=== PATIENT | male | born 1960 | race Caucasian/White ===

== ENCOUNTER 2016-10-16 14:43 | Emergency (ER) | payer BC ==
[2016-10-16 14:55] VITALS: BP 133/81
--- NOTE | 2016-10-16 15:26 | EDM.PDOC ---
ED HPI GENERAL MEDICAL PROBLEM - General Chief Complaint: Lower Extremity Injury/Pain Stated Complaint: RIGHT LEG SWELLING Time Seen by Provider: 10/16/16 15:04 Source of Information: Reports: Patient History Limitations: Reports: No Limitations - History of Present Illness INITIAL COMMENTS - FREE TEXT/NARRATIVE: Patient is a 48-year-old male who presents to the ED with concerns of having a blood clot to his right leg. Patient recently underwent Port-A-Cath placement and was instructed if at any time develops swelling and/or pain to his lower extremities to be evaluated in the ED immediately. Patient has a history of lymphoma and underwent bone marrow biopsy of his left hip this past week. Patient did have one episode of intermittent pain to the right leg that lasted only for a short period of time and has not reoccurred. believes patient has swelling to his thigh, knee, and lower leg. There is no increased warmth, redness, open wounds present. No sensory/motor deficits to his lower extremity. Denies any chest pain, shows breath, nausea/vomiting, dizziness, presyncope/ simple episode, or any additional complaints. Patient has been diagnosed with lymphoma unclear of his non-Hodgkin's or Hodgkin's lymphoma. He will find out this information tomorrow. In addition PET scan was obtained with no results as of today. He sees his oncologist tomorrow. lower abdomen Pain Score (Numeric/FACES): 4 - Related Data Allergies Allergy/AdvReac Type Severity Reaction Status Date / Time No Known Allergies Allergy Verified 10/16/16 14:55 Home Meds: Home Meds Ascorbic Acid/Ascorbate Sodium [Vitamin C 500 mg Wafer] 1,000 mg PO DAILY [History] Diphenhyd/Lidocaine/Nystatin [Magic Mouthwash] 5 ml PO Q4H PRN 10/16/16 [History ] Hydrocodone/Acetaminophen [[place] 5-325] 1 tab PO Q6H PRN 10/16/16 [History] Lisinopril [Lisinopril] 1 tab PO DAILY 10/16/16 [History] Melatonin 5 mg PO BEDTIME PRN 10/16/16 [History] Ondansetron [Zofran ODT] 8 mg PO Q8H 10/16/16 [History] Simvastatin [Zocor] 20 mg PO BEDTIME 10/16/16 [History] Valerian Root 100 mg PO BEDTIME PRN 10/16/16 [History] Vitamin B Comp W-C/FA/Zinc [Tata B Strong with C & Zinc Tb] 1 each PO DAILY [History] Past Medical History HEENT History: Reports: Impaired Vision Cardiovascular History: Reports: Hypertension Respiratory History: Reports: None Gastrointestinal History: Reports: Other (See Below) Other Gastrointestinal History: mouth pain Hematologic History: Reports: B12 Deficiency Immunologic History: Reports: Other (See Below) Other Immunologic History: diagnosed with lymphoma 3 weeks ago Oncologic (Cancer) History: Reports: Lymphoma Social & Family History - Family History Family Medical History: Noncontributory - Tobacco Use Smoking Status *Q: Current Some Day Smoker Years of Tobacco use: 15 Packs/Tins Daily: 0.1 - Caffeine Use Caffeine Use: Reports: Coffee - Recreational Drug Use Recreational Drug Use: No Review of Systems - Review of Systems Review Of Systems: See Below Constitutional: Denies: Chills, Diaphoresis, Fever Respiratory: Reports: No Symptoms Cardiovascular: Reports: No Symptoms GI/Abdominal: Reports: Abdominal Pain (Chronic abdominal pain secondary to lymphoma with no new changes) Musculoskeletal: Reports: Leg Pain (History of intermittent right sided leg pain. No pain today. States family was concerned about increased swelling to the upper thigh, knee, and lower leg. They were concerned he may have a blood clot.) Skin: Denies: Bruising, Erythema, Wound Neurological: Reports: No Symptoms ED EXAM, GENERAL - Physical Exam Exam: See Below Exam Limited By: No Limitations General Appearance: Alert, WD/WN, No Apparent Distress Ears: Hearing Grossly Normal Nose: Normal Inspection Throat/Mouth: Normal Voice, No Airway Compromise Neck: Normal Inspection, Supple Respiratory/Chest: No Respiratory Distress, No Accessory Muscle Use Cardiovascular: Normal Peripheral Pulses, Regular Rate, Rhythm Peripheral Pulses: 2+: Popliteal (R), Posterior Tibial (R), Dorsalis Pedis (R) GI/Abdominal: Normal Bowel Sounds, Soft, Non-Tender, No Organomegaly, No Distention Extremities: Normal Inspection, Normal Range of Motion, Non-Tender, No Pedal Edema, Normal Capillary Refill, Other (No palpable cord on palpation. No increased warmness, no redness, no swelling, no pain present.) Neurological: Alert, Oriented, CN II-XII Intact, Normal Cognition, No Motor/ Sensory Deficits Psychiatric: Normal Affect, Normal Mood Skin Exam: Warm, Dry, Intact, Normal Color Lymphatic: No Adenopathy (No obvious lymphadenopathy noted to the right leg.) Course - Vital Signs Last Recorded V/S: Last Vital Signs Temp 98.4 F 10/16/16 14:49 Pulse 74 10/16/16 14:49 Resp 18 10/16/16 14:49 BP 133/81 10/16/16 14:49 Pulse Ox 100 10/16/16 14:49 - Re-Assessments/Exams Free Text/Narrative Re-Assessment/Exam: Examined patient with Dr. Toro. No findings concerning for DVT. No pain, no swelling, no increased warmth, no decrease range of motion, no edema, no sensory /motor deficits. Will discharge patient home with instructions as documented. Departure - Departure Time of Disposition: 15:28 Disposition: Home, Self-Care 01 Condition: Good Clinical Impression: Adult general medical examination Lymphoma Qualifiers: Lymphoma type: unspecified type Lymphoma site: intra-abdominal nodes Qualified Code(s): C85.93 - Non-Hodgkin lymphoma, unspecified, intra-abdominal lymph nodes - Discharge Information Referrals: Alberta Ridley MD [Primary Care Provider] - Forms: ED Department Discharge Additional Instructions: Findings on examination did not elicit any findings concerning for DVT, infection, gout, or pseudogout. There is no obvious swelling discrepancies in comparison to the left leg. No palpable cord. No increased redness, increased warmth, or pain present. Continue to follow instructions by [facility] for any changes. Keep appointment with oncology as scheduled. Return to the ED for any new or worsening symptoms.
== END 2016-10-16 15:40 | disposition home or self-care (01) ==
LOC: JD.ED 14:43
DX: C85.93 Non-Hodgkin lymphoma, unspecified, intra-abdominal lymph nodes (principal); I10 Essential (primary) hypertension; F17.210 Nicotine dependence, cigarettes, uncomplicated; Z79.899 Other long term (current) drug therapy
CPT/HCPCS: 99282; 99283

== ENCOUNTER 2016-10-18 14:27 | Emergency (ER) | payer BC ==
[2016-10-18 15:16] VITALS: BP 168/107
[2016-10-18] MEDS ORDERED: Sodium Chloride 0.9% 10 ML Syringe FLUSH PRN (15:26)
[2016-10-18] MEDS ORDERED: Ondansetron 4 MG/2 ML SDV IVPUSH ONE (15:26)
[2016-10-18] MEDS ORDERED: HYDROmorphone 1 MG/ML Syringe IVPUSH ONE ×2 (15:29→18:00)
[2016-10-18] MEDS ORDERED: Sodium Chloride 0.9% 1,000 ML IV SCH (15:30)
[2016-10-18] MEDS ORDERED: Sodium Chloride 0.9% 10 ML Syringe FLUSH ONE (15:46)
[2016-10-18] MEDS ORDERED: Iopamidol 612 MG/ML 150 ML Bottle IVPUSH ONE (15:46)
[2016-10-18] MEDS ORDERED: Diatrizoate Meglumine/Diatrizoate Sodium 37% 120 ML Bottle PO ONE (15:46)
--- NOTE | 2016-10-18 16:31 | EDM.PDOC ---
ED HPI GENERAL MEDICAL PROBLEM - General Chief Complaint: Abdominal Pain Stated Complaint: POSSIBLE BOWEL OBSTRUCTION Time Seen by Provider: 10/18/16 15:16 Source of Information: Reports: Patient History Limitations: Reports: No Limitations - History of Present Illness INITIAL COMMENTS - FREE TEXT/NARRATIVE: The patient presents with left sided abdominal pain that started today. He has recently been diagnosed with nonhodgkin's lymphoma. He had a port put in last week. He is scheduled for chemo tomorrow. He has some nausea but no vomiting. He had a small bowel movement today. He has not been able to void very well lately. He has no dysuria and no diarrhea. He has never had abdominal surgery. He has some lymph nodes in the left abdomen and his neck and chest. He is concerned he may have a bowel obstruction. Onset: Gradual Duration: Day(s): (Today) Location: Reports: Abdomen Quality: Reports: Sharp Severity: Severe Improves with: Reports: None Worsens with: Reports: None Associated Symptoms: Reports: Nausea/Vomiting. Denies: Confusion, Chest Pain, Fever/Chills, Shortness of Breath Abdomen Pain Score (Numeric/FACES): 10 - Related Data Allergies Allergy/AdvReac Type Severity Reaction Status Date / Time No Known Allergies Allergy Verified 10/18/16 15:16 Home Meds: Home Meds Ascorbic Acid/Ascorbate Sodium [Vitamin C 500 mg Wafer] 1,000 mg PO DAILY [History] Diphenhyd/Lidocaine/Nystatin [Magic Mouthwash] 5 ml PO Q4H PRN 10/16/16 [History ] Hydrocodone/Acetaminophen [[place] 5-325] 1 tab PO Q6H PRN 10/16/16 [History] Lisinopril [Lisinopril] 1 tab PO DAILY 10/16/16 [History] Melatonin 5 mg PO BEDTIME PRN 10/16/16 [History] Ondansetron [Zofran ODT] 8 mg PO Q8H 10/16/16 [History] Simvastatin [Zocor] 20 mg PO BEDTIME 10/16/16 [History] Valerian Root 100 mg PO BEDTIME PRN 10/16/16 [History] Vitamin B Comp W-C/FA/Zinc [Tata B Strong with C & Zinc Tb] 1 each PO DAILY [History] Allopurinol [Zyloprim] 300 mg PO BID 10/18/16 [History] Past Medical History HEENT History: Reports: Impaired Vision Cardiovascular History: Reports: Hypertension Respiratory History: Reports: None Gastrointestinal History: Reports: Other (See Below) Other Gastrointestinal History: mouth pain Hematologic History: Reports: B12 Deficiency Immunologic History: Reports: Other (See Below) Other Immunologic History: diagnosed with lymphoma 3 weeks ago Oncologic (Cancer) History: Reports: Lymphoma Social & Family History - Family History Family Medical History: Noncontributory - Tobacco Use Smoking Status *Q: Unknown Ever Smoked Years of Tobacco use: 15 Packs/Tins Daily: 0.1 - Caffeine Use Caffeine Use: Reports: Coffee - Recreational Drug Use Recreational Drug Use: No ED ROS GENERAL - Review of Systems Review Of Systems: See Below Constitutional: Reports: No Symptoms HEENT: Reports: No Symptoms Respiratory: Reports: No Symptoms Cardiovascular: Reports: No Symptoms Endocrine: Reports: No Symptoms GI/Abdominal: Reports: Abdominal Pain, Nausea. Denies: Diarrhea, Vomiting : Reports: No Symptoms Musculoskeletal: Reports: No Symptoms Skin: Reports: No Symptoms ED EXAM, GI/ABD - Physical Exam Exam: See Below Exam Limited By: No Limitations General Appearance: Moderate Distress Ears: Normal External Exam Nose: Normal Inspection Head: Atraumatic, Normocephalic Neck: Normal Inspection Respiratory/Chest: No Respiratory Distress, Lungs Clear, Normal Breath Sounds Cardiovascular: Regular Rate, Rhythm, No Edema, No Murmur GI/Abdominal Exam: Soft, Non-Tender, No Organomegaly, No Mass Back Exam: Normal Inspection Extremities: Normal Inspection Neurological: Alert, Oriented, No Motor/Sensory Deficits Course - Vital Signs Last Recorded V/S: Last Vital Signs Temp 98.1 F 10/18/16 15:13 Pulse 67 10/18/16 15:13 Resp 18 10/18/16 15:13 BP 168/107 H 10/18/16 15:13 Pulse Ox 100 10/18/16 15:13 - Orders/Labs/Meds Orders: Active Orders 24 hr Category Date Time Status Peripheral IV Care [RC] . DIRECTED Care 10/18/16 15:27 Active Sodium Chloride 0.9% [Normal Saline] 1,000 ml Med 10/18/16 15:30 Active IV ASDIRECTED Sodium Chloride 0.9% [Saline Flush] Med 10/18/16 15:26 Active 10 ml FLUSH ASDIRECTED PRN ED Antiemetic Medication Reflex [OM.PC] Stat Oth 10/18/16 15:26 Ordered Peripheral IV Insertion Adult [OM.PC] Stat Ot 10/18/16 15:26 Ordered Medication Orders Sodium Chloride (Normal Saline) 1,000 mls @ 125 mls/hr IV ASDIRECTED DEA Last Admin: 10/18/16 15:37 Dose: 125 mls/hr Sodium Chloride (Saline Flush) 10 ml FLUSH ASDIRECTED PRN PRN Reason: Keep Vein Open Last Admin: 10/18/16 15:40 Dose: 10 ml Labs: Laboratory Tests 10/18/16 10/18/16 10/18/16 Range/Units 15:26 15:30 17:30 WBC 7.34 (4.23-9.07) K/mm3 RBC 3.70 L (4.63-6.08) M/mm3 Hgb 10.8 L (13.7-17.5) gm/L Hct 31.9 L (40.1-51.0) % MCV 86.2 (79.0-92.2) fl MCH 29.2 (25.7-32.2) pg MCHC 33.9 (32.2-35.5) g/dl RDW Std Deviation 41.8 (35.1-43.9) fL Plt Count 261 (163-337) K/mm3 MPV 10.2 (9.4-12.3) fl Neut % (Auto) 83.7 H (34.0-67.9) % Lymph % (Auto) 5.6 L (21.8-53.1) % [place] % (Auto) 9.7 (5.3-12.2) % Eos % (Auto) 0.8 (0.8-7.0) Baso % (Auto) 0.1 (0.1-1.2) % Neut # (Auto) 6.14 H (1.78-5.38) K/mm3 Lymph # (Auto) 0.41 L (1.32-3.57) K/mm3 [place] # (Auto) 0.71 (0.30-0.82) K/mm3 Eos # (Auto) 0.06 (0.04-0.54) K/mm3 Baso # (Auto) 0.01 (0.01-0.08) K/mm3 Manual Slide Review Abnormal smear Sodium 126 L (136-145) mEq/L Potassium 4.0 (3.5-5.1) mEq/L Chloride 91 L (98-107) mEq/L Carbon Dioxide 26 (21-32) mEq/L Anion Gap 13.0 (5-15) BUN 8 (7-18) mg/dL Creatinine 0.7 (0.7-1.3) mg/dL Est Cr Clr Drug Dosing TNP Estimated GFR (MDRD) > 60 (>60) mL/min BUN/Creatinine Ratio 11.4 L (14-18) Glucose 116 H (74-106) mg/dL Calcium 9.0 (8.5-10.1) mg/dL Total Bilirubin 0.3 (0.2-1.0) mg/dL AST 32 (15-37) U/L ALT 42 (16-63) U/L Alkaline Phosphatase 123 H (46-116) U/L Total Protein 7.4 (6.4-8.2) g/dl Albumin 3.1 L (3.4-5.0) g/dl Globulin 4.3 gm/dL Albumin/Globulin Ratio 0.7 L (1-2) Lipase 73 (73-393) U/L Urine Color Light yellow (Yellow) Urine Appearance Clear (Clear) Urine pH 6.5 (5.0-8.0) Ur Specific [place] 1.010 (1.005-1.030) Urine Protein Negative (Negative) Urine Glucose (UA) Negative (Negative) Urine Ketones Negative (Negative) Urine Occult Blood Negative (Negative) Urine Nitrite Negative (Negative) Urine Bilirubin Negative (Negative) Urine Urobilinogen 0.2 (0.2-1.0) Ur Leukocyte Esterase Negative (Negative) Urine RBC Not seen (0-5) /hpf Urine WBC Not seen (0-5) /hpf Ur Epithelial Cells 0-5 (0-5) /hpf Urine Bacteria Not seen (FEW) /hpf Urine Mucus Not seen (FEW) /hpf Meds: Medications Generic Name Dose Route Start Last Admin Trade Name Freq PRN Reason Stop Dose Admin Sodium Chloride 1,000 mls @ 125 mls/hr 10/18/16 15:30 10/18/16 15:37 Normal Saline IV 125 mls/hr ASDIRECTED DEA Administration Sodium Chloride 10 ml 10/18/16 15:26 10/18/16 15:40 Saline Flush FLUSH 10 ml ASDIRECTED PRN Administration Keep Vein Open Discontinued Medications Generic Name Dose Route Start Last Admin Trade Name Stuart PRN Reason Stop Dose Admin Diatrizoate Meglum/Diatrizoate Sod 90 ml 10/18/16 15:46 10/18/16 16:46 Gastrografin 37% PO 10/18/16 15:47 90 ml ONETIME ONE Administration Hydromorphone HCl 1 mg 10/18/16 15:29 10/18/16 15:39 Dilaudid IVPUSH 10/18/16 15:30 1 mg ONETIME ONE Administration Iopamidol 125 ml 10/18/16 15:46 10/18/16 16:47 Isovue-300 (61%) IVPUSH 10/18/16 15:47 125 ml ONETIME ONE Administration Ondansetron HCl 4 mg 10/18/16 15:26 10/18/16 15:37 Zofran IVPUSH 10/18/16 15:27 4 mg ONETIME ONE Administration Sodium Chloride 10 ml 10/18/16 15:46 10/18/16 16:47 Saline Flush FLUSH 10/18/16 15:47 10 ml ONETIME ONE Administration - Re-Assessments/Exams Free Text/Narrative Re-Assessment/Exam: 10/18/16 16:31 I ordered an IV NS 1L bolus, zofran 4mg IV, dilaudid 1mg IV, labs, UA and CT of his abdomen and pelvis. 10/18/16 17:28 His WBC is normal. His Na was low at 126. His glucose was a little elevated at 116. His alk phos was elevated at 123. His lipase was low. His CT shows inflammatory change within the right and left sides of the lower abdomen. Etiology for this is not appreciated. Findings raise the possibility of inflammatory reaction from treatment of the patient's lymphoma. Appendix not visualized. Please correlate that patient has had previous appendectomy. Adenopathy seen within the retroperitoneum as well as right iliac chain and right inguinal region. No prior studies available for comparison to determine stability of this adenopathy. No additional abnormality if appreciated. I called Dr Alberta Ridley his oncologist and she wanted him to have some dexamethasone 10mg IV and she wants to see him tomorrow at 8am. She feels this is related to the lymphoma. She wants to get him started on the chemo tomorrow. The patient is in agreement with the plan. I will discharge him home. Departure - Departure Time of Disposition: 18:10 Disposition: Home, Self-Care 01 Condition: Good Clinical Impression: Lymphoma Qualifiers: Lymphoma type: unspecified type Lymphoma site: intra-abdominal nodes Qualified Code(s): C85.93 - Non-Hodgkin lymphoma, unspecified, intra-abdominal lymph nodes Abdominal pain Qualifiers: Abdominal location: left lower quadrant Qualified Code(s): R10.32 - Left lower quadrant pain - Discharge Information Referrals: Alberta Ridley MD [Primary Care Provider] - (Tomorrow at 8am) Forms: ED Department Discharge Additional Instructions: Take your medication as needed for the nausea and pain. See Dr Ridley tomorrow at 8am. Please return tonight if you have any more problems. - My Orders Last 24 Hours: My Active Orders 10/18/16 15:26 Sodium Chloride 0.9% [Saline Flush] 10 ml FLUSH ASDIRECTED PRN ED Antiemetic Medication Reflex [OM.PC] Stat Peripheral IV Insertion Adult [OM.PC] Stat 10/18/16 15:27 Peripheral IV Care [RC] . DIRECTED 10/18/16 15:30 Sodium Chloride 0.9% [Normal Saline] 1,000 ml IV ASDIRECTED - Assessment/Plan Last 24 Hours: My Active Orders 10/18/16 15:26 Sodium Chloride 0.9% [Saline Flush] 10 ml FLUSH ASDIRECTED PRN ED Antiemetic Medication Reflex [OM.PC] Stat Peripheral IV Insertion Adult [OM.PC] Stat 10/18/16 15:27 Peripheral IV Care [RC] . DIRECTED 10/18/16 15:30 Sodium Chloride 0.9% [Normal Saline] 1,000 ml IV ASDIRECTED
--- NOTE | 2016-10-18 17:13 | CT ---
CT abdomen and pelvis Technique: Multiple axial sections were obtained from above the dome of the diaphragm inferiorly through the pubic symphysis. Intravenous and oral contrast was utilized. Delayed images were also obtained through the abdomen and pelvis. Comparison: No previous CT exam is available for comparison. Findings: Small portion of the visualized lung bases shows nothing acute. Liver shows no focal parenchymal abnormality. Spleen appears within normal limits. Adrenal glands show no nodule. Kidneys show contrast enhancement. Cyst noted within the lower left kidney measuring approximately 2.2 cm in size. Gallbladder shows no calcified gallstones. Pancreas is within normal limits. Aorta shows no aneurysmal dilatation. Bulky retroperitoneal adenopathy is seen with large lymph nodes seen within the right iliac chain and large lymph nodes also seen within the right inguinal region. This is compatible with the clinical history of lymphoma. There is slight inflammatory change seen off the inferior cecum. Appendix is not visualized. Etiology for this inflammatory change is not appreciated. Mild inflammatory change is also seen on the left side of the lower abdomen. No diverticuli are seen to indicate diverticulitis. Delayed images shows contrast excretion from both ureters with contrast seen in within the bladder. No ureteral obstruction is seen. Bone window settings were reviewed which shows disc space narrowing at L4-L5 and L5-S1. L5-S1 disc shows vacuum phenomena. Small amount of epidural air is seen within the central canal compatible with annular rupture at L5-S1. Impression: 1. Inflammatory change within the right and left sides of the lower abdomen. Etiology for this is not appreciated. Findings raise the possibility of inflammatory reaction from treatment of the patient's lymphoma. 2. Appendix not visualized. Please correlate that patient has had previous appendectomy. 3. Adenopathy seen within the retroperitoneum as well as right iliac chain and right inguinal region. No prior studies available for comparison to determine stability of this adenopathy. 3. No additional abnormality is appreciated. Diagnostic code #9
[2016-10-18] MEDS ORDERED: Dexamethasone 4 MG/ML 5 ML MDV IV ONE (17:59)
[2016-10-18] MEDS ORDERED: Dexamethasone 10 MG/ML SDV ONE (18:06)
[2016-10-18] MEDS ORDERED: Dexamethasone 10 MG/ML SDV IVPUSH ONE (18:17)
== END 2016-10-18 18:24 | disposition home or self-care (01) ==
LOC: JD.ED 14:27
DX: C85.93 Non-Hodgkin lymphoma, unspecified, intra-abdominal lymph nodes (principal); I10 Essential (primary) hypertension; Z79.899 Other long term (current) drug therapy
CPT/HCPCS: 36415; 74177; 80053; 81001; 83690; 85025; 96361; 96374; 96375; 96376; 99284; J1100; J1170; J2405; J7040; J7050; Q9963; Q9967

== ENCOUNTER 2016-12-18 19:09 | Emergency (ER) | payer BC ==
[2016-12-18 19:19] VITALS: BP 136/88
--- NOTE | 2016-12-18 19:43 | EDM.PDOC ---
ED HPI GENERAL MEDICAL PROBLEM - General Chief Complaint: Upper Extremity Injury/Pain Stated Complaint: arm swelling Time Seen by Provider: 12/18/16 19:18 Source of Information: Reports: Patient History Limitations: Reports: No Limitations - History of Present Illness INITIAL COMMENTS - FREE TEXT/NARRATIVE: The patient presents with right arm pain, swelling and redness. The patient woke up with pain about 1 week ago. It has gotten worse. He does not recall any injury. He has no fever or chills. He is on chemotherapy for nonHodgkin's lymphoma. He is scheduled for chemo on . He has no history of blood clots in his lungs or limbs. He denies chest pain or shortness of breath. Onset: Gradual Duration: Week(s): (1) Location: Reports: Upper Extremity, Right Quality: Reports: Sharp Severity: Moderate Improves with: Reports: None Worsens with: Reports: Movement Context: Reports: Activity (He woke up with it) Associated Symptoms: Reports: No Other Symptoms Right Middle Arm Pain Score (Numeric/FACES): 4 - Related Data Allergies Allergy/AdvReac Type Severity Reaction Status Date / Time No Known Allergies Allergy Verified 10/18/16 15:16 Home Meds: Home Meds Ascorbic Acid/Ascorbate Sodium [Vitamin C 500 mg Wafer] 1,000 mg PO DAILY [History] Diphenhyd/Lidocaine/Nystatin [Magic Mouthwash] 5 ml PO Q4H PRN 10/16/16 [History ] Hydrocodone/Acetaminophen [[place] 5-325] 1 tab PO Q6H PRN 10/16/16 [History] Lisinopril [Lisinopril] 20 mg PO DAILY 10/16/16 [History] Melatonin 5 mg PO BEDTIME PRN 10/16/16 [History] Ondansetron [Zofran ODT] 8 mg PO Q8H 10/16/16 [History] Simvastatin [Zocor] 20 mg PO BEDTIME 10/16/16 [History] Allopurinol [Zyloprim] 300 mg PO BID 10/18/16 [History] Aspirin [Halfprin] 81 mg PO DAILY 12/18/16 [History] Rivaroxaban [Xarelto] 15 mg PO BID #30 tablet 12/18/16 [Rx] Past Medical History HEENT History: Reports: Impaired Vision Cardiovascular History: Reports: Hypertension Respiratory History: Reports: None Gastrointestinal History: Reports: Other (See Below) Other Gastrointestinal History: mouth pain Hematologic History: Reports: B12 Deficiency Immunologic History: Reports: Other (See Below) Other Immunologic History: diagnosed with lymphoma 3 weeks ago Oncologic (Cancer) History: Reports: Non-Hodgkin's Lymphoma Social & Family History - Family History Family Medical History: Noncontributory - Tobacco Use Smoking Status *Q: Current Some Day Smoker Years of Tobacco use: 30 Packs/Tins Daily: 0.5 - Caffeine Use Caffeine Use: Reports: Coffee - Recreational Drug Use Recreational Drug Use: No Review of Systems - Review of Systems Review Of Systems: See Below Constitutional: Reports: No Symptoms Eyes: Reports: No Symptoms Ears: Reports: No Symptoms Nose: Reports: No Symptoms Mouth/Throat: Reports: No Symptoms Respiratory: Reports: No Symptoms Cardiovascular: Reports: No Symptoms GI/Abdominal: Reports: No Symptoms Genitourinary: Reports: No Symptoms Musculoskeletal: Reports: Arm Pain (right) Skin: Reports: No Symptoms ED EXAM, GENERAL - Physical Exam Exam: See Below Exam Limited By: No Limitations General Appearance: Alert, No Apparent Distress Ears: Normal External Exam Nose: Normal Inspection Head: Atraumatic, Normocephalic Neck: Normal Inspection Respiratory/Chest: No Respiratory Distress, Lungs Clear, Normal Breath Sounds Cardiovascular: Regular Rate, Rhythm, No Edema, No Murmur GI/Abdominal: Soft, Non-Tender, No Organomegaly, No Mass Back Exam: Normal Inspection Extremities: Other (Edema with erythema to the distal, medial upper arm with pain upon palpation. Good sensation and pulses distally.) Course - Vital Signs Last Recorded V/S: Last Vital Signs Temp 98.2 F 12/18/16 19:18 Pulse 73 12/18/16 19:18 Resp 20 12/18/16 19:18 BP 136/88 12/18/16 19:18 Pulse Ox 100 12/18/16 19:18 - Orders/Labs/Meds Orders: Active Orders 24 hr Category Date Time Status VL Duplex Upr Ext Veins Ltd Rt [US] Stat Exams 12/18/16 19:36 Ordered Enoxaparin [Lovenox] Med 12/18/16 21:55 Once 80 mg SUBCUT ONETIME ONE Rivaroxaban [Xarelto] Med 12/18/16 21:54 Once 10 mg PO ONETIME ONE Labs: Laboratory Tests 12/18/16 12/18/16 Range/Units 19:50 19:50 WBC 5.69 (4.23-9.07) K/mm3 RBC 3.25 L (4.63-6.08) M/mm3 Hgb 10.1 L (13.7-17.5) gm/L Hct 30.6 L (40.1-51.0) % MCV 94.2 H (79.0-92.2) fl MCH 31.1 (25.7-32.2) pg MCHC 33.0 (32.2-35.5) g/dl RDW Std Deviation 75.4 H (35.1-43.9) fL Plt Count 199 (163-337) K/mm3 MPV 11.3 (9.4-12.3) fl Neut % (Auto) 72.3 H (34.0-67.9) % Lymph % (Auto) 9.7 L (21.8-53.1) % [place] % (Auto) 14.2 H (5.3-12.2) % Eos % (Auto) 2.5 (0.8-7.0) Baso % (Auto) 0.9 (0.1-1.2) % Neut # (Auto) 4.12 (1.78-5.38) K/mm3 Lymph # (Auto) 0.55 L (1.32-3.57) K/mm3 [place] # (Auto) 0.81 (0.30-0.82) K/mm3 Eos # (Auto) 0.14 (0.04-0.54) K/mm3 Baso # (Auto) 0.05 (0.01-0.08) K/mm3 Manual Slide Review Normal smear Sodium 142 (136-145) mEq/L Potassium 4.0 (3.5-5.1) mEq/L Chloride 108 H (98-107) mEq/L Carbon Dioxide 26 (21-32) mEq/L Anion Gap 12.0 (5-15) BUN 12 (7-18) mg/dL Creatinine 1.0 (0.7-1.3) mg/dL Est Cr Clr Drug Dosing TNP Estimated GFR (MDRD) > 60 (>60) mL/min BUN/Creatinine Ratio 12.0 L (14-18) Glucose 104 (74-106) mg/dL Calcium 8.4 L (8.5-10.1) mg/dL Total Bilirubin 0.2 (0.2-1.0) mg/dL AST 16 (15-37) U/L ALT 25 (16-63) U/L Alkaline Phosphatase 84 (46-116) U/L C-Reactive Protein 0.4 (<1.0) mg/dL Total Protein 6.6 (6.4-8.2) g/dl Albumin 3.3 L (3.4-5.0) g/dl Globulin 3.3 gm/dL Albumin/Globulin Ratio 1.0 (1-2) - Re-Assessments/Exams Free Text/Narrative Re-Assessment/Exam: 12/18/16 19:44 I ordered an US of his arm and I will get some labs. 12/18/16 21:56 His Hgb was low at 10.1. His CMP looks good. The US shows a DVT in the right arm. I called Dr Collado the oncologist civil engineering draftsperson and he recommended lovenox shots or one of the newer anticoagulants. The patient went with xarelto. I ordered a dose here and lovenox 80mg subcutaneous. 12/18/16 21:57 Departure - Departure Time of Disposition: 22:00 Disposition: Home, Self-Care 01 Condition: Good Clinical Impression: Lymphoma Qualifiers: Lymphoma type: unspecified type Lymphoma site: intra-abdominal nodes Qualified Code(s): C85.93 - Non-Hodgkin lymphoma, unspecified, intra-abdominal lymph nodes Deep vein thrombosis (DVT) of right upper extremity Qualifiers: Affected thrombotic vein of extremity: other upper extremity vein Chronicity: acute Qualified Code(s): I82.621 - Acute embolism and thrombosis of deep veins of right upper extremity - Discharge Information Prescriptions: Rivaroxaban [Xarelto] 15 mg PO BID #30 tablet Referrals: Alberta Ridley MD [Primary Care Provider] - 1 Day Forms: ED Department Discharge Additional Instructions: Call Dr Ridley tomorrow morning and let her know that you have a DVT (deep venous thrombosis) in your arm. Check and see if she wants you on the xarelto. If she does take a pill 2 times per day for 21 days and then daily after that. Please return if you are worse. - My Orders Last 24 Hours: My Active Orders 12/18/16 19:36 VL Duplex Upr Ext Veins Ltd Rt [US] Stat 12/18/16 21:54 Rivaroxaban [Xarelto] 10 mg PO ONETIME ONE 12/18/16 21:55 Enoxaparin [Lovenox] 80 mg SUBCUT ONETIME ONE - Assessment/Plan Last 24 Hours: My Active Orders 12/18/16 19:36 VL Duplex Upr Ext Veins Ltd Rt [US] Stat 12/18/16 21:54 Rivaroxaban [Xarelto] 10 mg PO ONETIME ONE 12/18/16 21:55 Enoxaparin [Lovenox] 80 mg SUBCUT ONETIME ONE
[2016-12-18] MEDS ORDERED: Rivaroxaban 10 MG Tab PO ONE (21:54)
[2016-12-18] MEDS ORDERED: Enoxaparin 80 MG/0.8 ML Syringe SUBCUT ONE (21:55)
--- NOTE | 2016-12-19 12:49 | US ---
Right upper extremity venous ultrasound: Multiple real-time images were obtained of the right internal jugular, subclavian, brachial, basilic, ulnar, cephalic, and radial veins. Lack of compression, phasic flow and augmentation seen within the brachial vein, radial vein and ulnar vein. Other veins show normal compression, phasic flow and augmentation. Impression: 1. Thrombus identified within the right brachial vein extending into the radial and ulnar veins. Diagnostic code #3 I agree with preliminary report issued by [facility] ([facility] report finalized on 12/18/16, 11:22 PM Central Time)
== END 2016-12-18 22:10 | disposition home or self-care (01) ==
LOC: JD.ED 19:09 → SUPCPDRO 19:09 → JD.ED 22:10
DX: I82.621 Acute embolism and thrombosis of deep veins of right upper extremity (principal); C85.93 Non-Hodgkin lymphoma, unspecified, intra-abdominal lymph nodes; I10 Essential (primary) hypertension; F17.210 Nicotine dependence, cigarettes, uncomplicated; Z79.82 Long term (current) use of aspirin
CPT/HCPCS: 36415; 80053; 85025; 86140; 93971; 96372; 99284; A9270; J1650

== ENCOUNTER 2020-01-24 17:13 | Emergency (ER) | payer BC, OTHER ==
[2020-01-24] MEDS ORDERED: Sodium Chloride 0.9% 1,000 ML IV ONE (17:23)
--- NOTE | 2020-01-24 17:23 | EDM.PDOC ---
ED HPI GENERAL MEDICAL PROBLEM - General Chief Complaint: Trauma Stated Complaint: [facility] Time Seen by Provider: 01/24/20 17:13 - History of Present Illness INITIAL COMMENTS - FREE TEXT/NARRATIVE: 59-year-old male brought in by EMS after falling off a roof. Patient fell approximately 15 feet landing on his tail bone area. The patient is intoxicated it is unclear how much he has been drinking. Patient denies pain anywhere else. The patient would not cooperate to go into C spine precautions with EMS. And thus far will not allow us to secure his C-spine. Patient is a recent history of lymphoma treated last year he is got a port in place. Patient denies any other pain. He is not on any blood thinners. He is unsure when his last tetanus shot was. The patient currently is taking lithium uncertain of the dose simvastatin 20 mg at bedtime and lisinopril 20 mg daily. This is the best we can tell his in chart med list is apparently wrong. He is not on blood thinners he was on Xarelto in 2017 his thinks it had some to do with his lymphoma therapy. Medications #1 lithium # 2 simvastatin 20 mg at bedtime #3 lisinopril 20 mg daily Groin Pain Score (Numeric/FACES): 10 - Related Data Allergies Allergy/AdvReac Type Severity Reaction Status Date / Time No Known Allergies Allergy Verified 01/24/20 17:24 Home Meds: Home Meds Ascorbic Acid/Ascorbate Sodium [Vitamin C 500 mg Wafer] 1,000 mg PO DAILY 10/16/16 [History] Diphenhyd/Lidocaine/Nystatin [Magic Mouthwash] 5 ml PO Q4H PRN 10/16/16 [History] Hydrocodone/Acetaminophen [[place] 5-325] 1 tab PO Q6H PRN 10/16/16 [History] Lisinopril 20 mg PO DAILY 10/16/16 [History] Melatonin 5 mg PO BEDTIME PRN 10/16/16 [History] Ondansetron [Zofran ODT] 8 mg PO Q8H 10/16/16 [History] Simvastatin [Zocor] 20 mg PO BEDTIME 10/16/16 [History] Allopurinol [Zyloprim] 300 mg PO BID 10/18/16 [History] Aspirin [Halfprin] 81 mg PO DAILY 12/18/16 [History] Rivaroxaban [Xarelto] 15 mg PO BID #30 tablet 12/18/16 [Rx] Past Medical History HEENT History: Reports: Impaired Vision Cardiovascular History: Reports: Hypertension Respiratory History: Reports: None Gastrointestinal History: Reports: Other (See Below) Other Gastrointestinal History: mouth pain Hematologic History: Reports: B12 Deficiency Immunologic History: Reports: Other (See Below) Other Immunologic History: diagnosed with lymphoma 3 weeks ago Oncologic (Cancer) History: Reports: Non-Hodgkin's Lymphoma Social & Family History - Family History Family Medical History: Noncontributory - Caffeine Use Caffeine Use: Reports: Coffee Review of Systems - Review of Systems Review Of Systems: See Below Constitutional: Reports: No Symptoms Eyes: Reports: No Symptoms Ears: Reports: No Symptoms Nose: Reports: No Symptoms Mouth/Throat: Reports: No Symptoms Respiratory: Reports: No Symptoms Cardiovascular: Reports: No Symptoms GI/Abdominal: Reports: No Symptoms Genitourinary: Reports: No Symptoms. Denies: Dysuria, Painful Urination Musculoskeletal: Reports: Back Pain, Other (Tailbone pain) Skin: Reports: No Symptoms Neurological: Reports: No Symptoms, Other (Toxic aided) ED EXAM, GENERAL - Physical Exam Exam: See Below Exam Limited By: Other (He will not allow us to secure his C-spine) General Appearance: Alert, Other (He has a hard time getting comfortable because of his low back and tailbone area pain) Eye Exam: Bilateral Eye: Normal Inspection Ears: Normal External Exam, Normal Canal, Hearing Grossly Normal, Normal TMs Nose: Normal Inspection, Normal Mucosa, No Blood Throat/Mouth: Normal Teeth (Lower he has dentures up top) Head: Atraumatic, Normocephalic Neck: Normal Inspection, Supple, Non-Tender, Full Range of Motion. No: Lymphadenopathy (L), Lymphadenopathy (R), Tender Midline Respiratory/Chest: No Respiratory Distress, Lungs Clear, Normal Breath Sounds, No Accessory Muscle Use, Chest Non-Tender Cardiovascular: Regular Rate, Rhythm, No Edema, No Murmur GI/Abdominal: Normal Bowel Sounds, Soft, Non-Tender, Pelvis Stable Back Exam: Normal Inspection, Full Range of Motion, Other (Patient was logrolled early during the exam and no palpable vertebral tenderness was identified). No: CVA Tenderness (L), CVA Tenderness (R), Vertebral Tenderness Extremities: Normal Inspection, No Pedal Edema Neurological: Alert, Other (Intoxicated) Skin Exam: Warm, Dry, Intact Course - Vital Signs Last Recorded V/S: Last Vital Signs Temp 36.6 C 01/24/20 17:21 Pulse 78 01/24/20 18:32 Resp 16 01/24/20 18:32 BP 128/74 01/24/20 18:32 Pulse Ox 98 01/24/20 18:32 - Orders/Labs/Meds Orders: Active Orders 24 hr Category Date Time Status Vaccines to be Administered [RC] PER UNIT ROUTINE Care 01/24/20 17:29 Active Cervical Spine wo Cont [CT] Routine Exams 01/24/20 17:24 Taken Chest Abdomen Pelvis w Cont [CT] Routine Exams 01/24/20 17:25 Taken Head wo Cont [CT] Routine Exams 01/24/20 17:24 Taken Lumbar Spine wo Cont [CT] Routine Exams 01/24/20 17:25 Taken Thoracic Spine wo Cont [CT] Routine Exams 01/24/20 17:25 Taken DRUG SCREEN, URINE [URCHEM] Stat Lab 01/24/20 Ordered PATIENT RETYPE [BBK] Routine Lab 01/24/20 18:11 Ordered UA W/MICROSCOPIC [URIN] Stat Lab 01/24/20 Ordered Lactated Ringers [Ringers, Lactated] 1,000 ml Med 01/24/20 19:15 Active IV ASDIRECTED Medication Orders Lactated Ringer's (Ringers, Lactated) 1,000 mls @ 125 mls/hr IV ASDIRECTED DEA Last Admin: 01/24/20 19:19 Dose: 125 mls/hr Documented by: ASPEN Labs: Laboratory Tests 01/24/20 01/24/20 01/24/20 Range/Units 17:21 17:21 17:21 WBC 10.19 H (4.23-9.07) K/mm3 RBC 4.14 L (4.63-6.08) M/mm3 Hgb 13.1 L D (13.7-17.5) gm/dl Hct 39.2 L (40.1-51.0) % MCV 94.7 H (79.0-92.2) fl MCH 31.6 (25.7-32.2) pg MCHC 33.4 (32.2-35.5) g/dl RDW Std Deviation 43.8 (35.1-43.9) fL Plt Count 199 (163-337) K/mm3 MPV 10.0 (9.4-12.3) fl Neut % (Auto) 70.8 H (34.0-67.9) % Lymph % (Auto) 17.3 L (21.8-53.1) % [place] % (Auto) 9.7 (5.3-12.2) % Eos % (Auto) 1.7 (0.8-7.0) Baso % (Auto) 0.2 (0.1-1.2) % Neut # (Auto) 7.22 H (1.78-5.38) K/mm3 Lymph # (Auto) 1.76 (1.32-3.57) K/mm3 [place] # (Auto) 0.99 H (0.30-0.82) K/mm3 Eos # (Auto) 0.17 (0.04-0.54) K/mm3 Baso # (Auto) 0.02 (0.01-0.08) K/mm3 PT 10.7 (9.7-12.0) SECONDS INR 1.00 APTT 23.1 (21.7-31.4) SECONDS Sodium 137 (136-145) mEq/L Potassium 3.6 (3.5-5.1) mEq/L Chloride 104 (98-107) mEq/L Carbon Dioxide 19 L (21-32) mEq/L Anion Gap 17.6 H (5-15) BUN 16 (7-18) mg/dL Creatinine 1.0 (0.7-1.3) mg/dL Est Cr Clr Drug Dosing TNP Estimated GFR (MDRD) > 60 (>60) mL/min BUN/Creatinine Ratio 16.0 (14-18) Glucose 99 (80-115) mg/dL Lactic Acid (0.4-2.0) mmol/L Calcium 8.8 (8.5-10.1) mg/dL Total Bilirubin 0.3 (0.2-1.0) mg/dL AST 29 (15-37) U/L ALT 38 (16-63) U/L Alkaline Phosphatase 83 (46-116) U/L Total Protein 7.3 (6.4-8.2) g/dl Albumin 4.0 (3.4-5.0) g/dl Globulin 3.3 gm/dL Albumin/Globulin Ratio 1.2 (1-2) Amylase 71 (25-115) U/L Ethyl Alcohol 0.18 (0.00) gm% SARS-CoV-2 RNA (YONG) (NEGATIVE) Blood Type Gel Antibody Screen 01/24/20 01/24/20 01/24/20 Range/Units 17:21 17:21 18:48 WBC (4.23-9.07) K/mm3 RBC (4.63-6.08) M/mm3 Hgb (13.7-17.5) gm/dl Hct (40.1-51.0) % MCV (79.0-92.2) fl MCH (25.7-32.2) pg MCHC (32.2-35.5) g/dl RDW Std Deviation (35.1-43.9) fL Plt Count (163-337) K/mm3 MPV (9.4-12.3) fl Neut % (Auto) (34.0-67.9) % Lymph % (Auto) (21.8-53.1) % [place] % (Auto) (5.3-12.2) % Eos % (Auto) (0.8-7.0) Baso % (Auto) (0.1-1.2) % Neut # (Auto) (1.78-5.38) K/mm3 Lymph # (Auto) (1.32-3.57) K/mm3 [place] # (Auto) (0.30-0.82) K/mm3 Eos # (Auto) (0.04-0.54) K/mm3 Baso # (Auto) (0.01-0.08) K/mm3 PT (9.7-12.0) SECONDS INR APTT (21.7-31.4) SECONDS Sodium (136-145) mEq/L Potassium (3.5-5.1) mEq/L Chloride (98-107) mEq/L Carbon Dioxide (21-32) mEq/L Anion Gap (5-15) BUN (7-18) mg/dL Creatinine (0.7-1.3) mg/dL Est Cr Clr Drug Dosing Estimated GFR (MDRD) (>60) mL/min BUN/Creatinine Ratio (14-18) Glucose (80-115) mg/dL Lactic Acid 1.6 (0.4-2.0) mmol/L Calcium (8.5-10.1) mg/dL Total Bilirubin (0.2-1.0) mg/dL AST (15-37) U/L ALT (16-63) U/L Alkaline Phosphatase (46-116) U/L Total Protein (6.4-8.2) g/dl Albumin (3.4-5.0) g/dl Globulin gm/dL Albumin/Globulin Ratio (1-2) Amylase (25-115) U/L Ethyl Alcohol (0.00) gm% SARS-CoV-2 RNA (YONG) Negative (NEGATIVE) Blood Type A POSITIVE Gel Antibody Screen Negative Meds: Medications Generic Name Dose Route Start Last Admin Trade Name Freq PRN Reason Stop Dose Admin Lactated Ringer's 1,000 mls @ 125 mls/hr 01/24/20 19:15 01/24/20 19:19 Ringers, Lactated IV 125 mls/hr ASDIRECTED DEA Administration Discontinued Medications Generic Name Dose Route Start Last Admin Trade Name Freq PRN Reason Stop Dose Admin Diphtheria/Tetanus/Acell Pertussis 0.5 ml 01/24/20 17:29 01/24/20 19:21 Adacel IM 01/24/20 17:30 Not Given .ONCE ONE Fentanyl 50 mcg 01/24/20 17:52 01/24/20 17:58 Sublimaze IVPUSH 01/24/20 17:53 50 mcg ONETIME ONE Administration Fentanyl 50 mcg 01/24/20 18:35 01/24/20 18:40 Sublimaze IVPUSH 01/24/20 18:36 50 mcg ONETIME ONE Administration Hydromorphone HCl 0.5 mg 01/24/20 18:57 01/24/20 19:18 Dilaudid IVPUSH 01/24/20 18:58 0.5 mg ONETIME ONE Administration Sodium Chloride 1,000 mls @ 999 mls/hr 01/24/20 17:23 01/24/20 17:29 Normal Saline IV 01/24/20 18:23 999 mls/hr ONETIME ONE Administration Iopamidol 25 ml 01/24/20 17:27 01/24/20 17:43 Isovue-300 (61%) IVPUSH 01/24/20 17:28 25 ml ONETIME ONE Administration Iopamidol 100 ml 01/24/20 17:27 01/24/20 17:43 Isovue-300 (61%) IVPUSH 01/24/20 17:28 100 ml ONETIME ONE Administration Sodium Chloride 10 ml 01/24/20 17:27 01/24/20 17:43 Saline Flush FLUSH 01/24/20 17:28 10 ml ONETIME ONE Administration - Re-Assessments/Exams Free Text/Narrative Re-Assessment/Exam: 01/24/20 19:58 Patient blood alcohol is 0.18. Minimal elevated white count hemoglobin hematocrit are minimally diminished. Patient had CT evaluation head CT is unremarkable for acute changes cervical spine does not show any suspected cervical changes however he has what looks like a old odontoid process fracture with significant posterior displacement of the anterior arch of C1 and the tip of the odontoid process in relation to the remainder of C2. Thoracic spine is unremarkable chest CT is unremarkable abdomen pelvic CT is unremarkable with the exception of a burst fracture at L1 lumbar CT again shows this this is lost about 50% of its 50% of its height with lateral transverse process fracture. I have checked with [facility] in [place] and is in [place] they cannot accept this patient I then discussed it with 1 call at [facility] in [place] and they are kind enough to accept this patient. Patient's case was discussed quintin with Dr. Murillo, neurosurgeon. Who agrees with the transfer at 730 Dr. Goel, ER physician agreed and accepted the patient in transfer. The plan is to obtain an MRI and this most likely will be treated conservatively but there is a chance it will need surgical intervention. Dr. Murillo did review the C-spine and agrees that this is chronic and old. Departure - Departure Time of Disposition: 20:04 Disposition: DC/Tfer to Acute Hospital 02 Clinical Impression: Lumbar burst fracture, Fall, Alcohol intoxication - Discharge Information Forms: ED Department Discharge Sepsis Event Note (ED) - Focused Exam Vital Signs: Vital Signs Temp Pulse Resp BP Pulse Ox 01/24/20 18:32 78 16 128/74 98 01/24/20 17:21 36.6 C 79 16 139/97 H 98 - My Orders Last 24 Hours: My Active Orders 01/24/20 DRUG SCREEN, URINE [URCHEM] Stat UA W/MICROSCOPIC [URIN] Stat 01/24/20 17:24 Cervical Spine wo Cont [CT] Routine Head wo Cont [CT] Routine 01/24/20 17:25 Chest Abdomen Pelvis w Cont [CT] Routine Lumbar Spine wo Cont [CT] Routine Thoracic Spine wo Cont [CT] Routine 01/24/20 17:29 Vaccines to be Administered [RC] PER UNIT ROUTINE 01/24/20 18:11 PATIENT RETYPE [BBK] Routine 01/24/20 19:15 Lactated Ringers [Ringers, Lactated] 1,000 ml IV ASDIRECTED - Assessment/Plan Last 24 Hours: My Active Orders 01/24/20 DRUG SCREEN, URINE [URCHEM] Stat UA W/MICROSCOPIC [URIN] Stat 01/24/20 17:24 Cervical Spine wo Cont [CT] Routine Head wo Cont [CT] Routine 01/24/20 17:25 Chest Abdomen Pelvis w Cont [CT] Routine Lumbar Spine wo Cont [CT] Routine Thoracic Spine wo Cont [CT] Routine 01/24/20 17:29 Vaccines to be Administered [RC] PER UNIT ROUTINE 01/24/20 18:11 PATIENT RETYPE [BBK] Routine 01/24/20 19:15 Lactated Ringers [Ringers, Lactated] 1,000 ml IV ASDIRECTED
[2020-01-24] MEDS ORDERED: Iopamidol 612 MG/ML 50 ML SDV IVPUSH ONE (17:27)
[2020-01-24] MEDS ORDERED: Iopamidol 612 MG/ML 100 ML Bottle IVPUSH ONE (17:27)
[2020-01-24] MEDS ORDERED: Diphtheria,Pertussis(Acell),Tetanus Vaccine 0.5 ML Syringe IM ONE (17:29)
[2020-01-24] MEDS: Sodium Chloride 0.9% 10 ML Syringe FLUSH ONE ×2 (17:30→17:43)
[2020-01-24] MEDS ORDERED: fentaNYL 100 MCG/2 ML SDV IVPUSH ONE ×2 (17:52→18:35)
[2020-01-24 18:33] VITALS: PULSE 78
[2020-01-24] MEDS ORDERED: HYDROmorphone 0.5 MG/0.5 ML Syringe IVPUSH ONE (18:57)
[2020-01-24] MEDS ORDERED: Lactated Ringers 1,000 ML IV SCH (19:15)
[2020-01-24] MEDS ORDERED: LORazepam 2 MG/ML SDV IVPUSH ONE (20:03)
[2020-01-24] MEDS ORDERED: HYDROmorphone 1 MG/ML Syringe IVPUSH ONE (20:03)
[2020-01-24] MEDS ORDERED: HYDROmorphone 1 MG/ML Syringe ONE (20:06)
[2020-01-24] MEDS ORDERED: LORazepam 2 MG/ML SDV ONE (20:07)
[2020-01-24 21:39] VITALS: BP 103/72
--- NOTE | 2020-01-27 10:38 | CT ---
PROCEDURE INFORMATION: Exam: CT Head Without Contrast Exam date and time: 01/24/2020 5:30 PM Age: 59 years old Clinical indication: Pain and injury or trauma; Blunt trauma (contusions or hematomas) and concussion/head injury; Consciousness not specified; Other: Generalized; Injury details: Fall, trauma, ETOH TECHNIQUE: Imaging protocol: Computed tomography of the head without contrast. Radiation optimization: All CT scans at this facility use at least one of these dose optimization techniques: automated exposure control; mA and/or kV adjustment per patient size (includes targeted exams where dose is matched to clinical indication); or iterative reconstruction. COMPARISON: No relevant prior studies available. FINDINGS: Brain: No hemorrhage. Unremarkable white matter. No mass effect. Cerebral ventricles: No ventriculomegaly. Bones/joints: Unremarkable. No acute fracture. Paranasal sinuses: Visualized sinuses are unremarkable. No fluid levels. Mastoid air cells: Unremarkable. Soft tissues: Left periorbital edema. IMPRESSION: No intracranial hemorrhage. Thank you for allowing us to participate in the care of your patient. Dictated and Authenticated by: Tom Guerra MD 01/24/2020 7:01 PM Central Time ([place] & [place]) [facility] SYSTEMMir[facility]
--- NOTE | 2020-01-27 10:39 | CT ---
"Addendum created by Bobby Short MD on 01/24/2020 7:33 PM Central Time ([place] & [place]): THIS REPORT CONTAINS FINDINGS THAT MAY BE CRITICAL TO PATIENT CARE. The findings were verbally communicated via telephone conference with VELIA RUSSELL at 7:33 PM CORRESPONDENCE TRANSCRIBER on 01/24/2020. The findings were acknowledged and understood. Initial Report created on 01/24/2020 7:29 PM Central Time ([place] & [place]): PROCEDURE INFORMATION: Exam: CT Cervical Spine Without Contrast Exam date and time: 01/24/2020 5:30 PM Age: 59 years old Clinical indication: Neck pain; Patient HX: Fall, trauma, ETOH TECHNIQUE: Imaging protocol: Computed tomography images of the cervical spine without contrast. Radiation optimization: All CT scans at this facility use at least one of these dose optimization techniques: automated exposure control; mA and/or kV adjustment per patient size (includes targeted exams where dose is matched to clinical indication); or iterative reconstruction. COMPARISON: No relevant prior studies available. FINDINGS: Bones/joints: The fracture through the midportion of the odontoid process. Fracture margins are smooth and slightly sclerotic. This is likely a chronic process. The anterior arch of C1 and the tip of the odontoid process are all displaced posteriorly for a distance of up to 5-6 mm. The facet joints are appropriately oriented. There is marked degenerative change of the facet joints. No acute posterior arch fracture seen. There is no evidence of acute fracture. Discs/Spinal canal/Neural foramina: There is mild left foraminal narrowing C3-C4 Soft tissues: No acute soft tissue abnormalities are identified. Lungs: The visualized portions of the lung apices are normal. DON PRADO | Final Radiology Report CONFIDENTIALITY STATEMENT This report is intended only for use by the referring physician, and only in accordance with law. If you received this in error, call [phone]. Page 2 of 2 IMPRESSION: 1. Odontoid process fracture appears quite chronic in nature. There is significant posterior displacement of the anterior arch of C1 and the tip of the odontoid process in relation to the remainder of C2. 2. There is no evidence of acute fracture. Thank you for allowing us to participate in the care of your patient. Dictated and Authenticated by: Bobby Short MD 01/24/2020 7:29 PM Central Time ([place] & [place]) [facility]"
--- NOTE | 2020-01-27 10:40 | CT ---
"PROCEDURE INFORMATION: Exam: CT Chest With Contrast Exam date and time: 01/24/2020 5:30 PM Age: 59 years old Clinical indication: Pain and injury or trauma; Generalized; Blunt trauma (contusions or hematomas); Injury details: Fall, trauma, ETOH TECHNIQUE: Imaging protocol: Computed tomography of the chest with intravenous contrast. Radiation optimization: All CT scans at this facility use at least one of these dose optimization techniques: automated exposure control; mA and/or kV adjustment per patient size (includes targeted exams where dose is matched to clinical indication); or iterative reconstruction. COMPARISON: No relevant prior studies available. FINDINGS: Tubes, catheters and devices: Indwelling left-sided central venous catheter with tip at junction of right atrium with superior vena cava. Lungs: No trauma-related groundglass densities, areas of lung consolidation, or significant cystic/cavitary lesions. Airway is patent. Pleural space: No pneumothorax, pleural effusion, or hemothorax. Heart: No pericardial effusion or hemopericardium. Mediastinal space: No pneumomediastinum, hemomediastinum, or stranding of retrosternal fat. Aorta: No aortic aneurysm. Lymph nodes: No enlarged axillary, mediastinal, or hilar lymph nodes. Bones/joints: The visualized shoulder girdle, sternum, ribs and spine are intact as imaged. Soft tissues: No sign of subcutaneous contusion or hematoma. No foreign body. IMPRESSION: No sign of acute traumatic sequelae to the chest. DON PRADO | Final Radiology Report CONFIDENTIALITY STATEMENT This report is intended only for use by the referring physician, and only in accordance with law. If you received this in error, call [phone]. Page 2 of 2 Thank you for allowing us to participate in the care of your patient. Dictated and Authenticated by: Sim Castellanos MD 01/24/2020 7:16 PM Central Time ([place] & [place]) [place]"
--- NOTE | 2020-01-27 10:41 | CT ---
PROCEDURE INFORMATION: Exam: CT Thoracic Spine Without Contrast Exam date and time: 01/24/2020 5:30 PM Age: 59 years old Clinical indication: Pain in thoracic spine; Patient HX: Fall, trauma, ETOH TECHNIQUE: Imaging protocol: Computed tomography images of the thoracic spine without contrast. Radiation optimization: All CT scans at this facility use at least one of these dose optimization techniques: automated exposure control; mA and/or kV adjustment per patient size (includes targeted exams where dose is matched to clinical indication); or iterative reconstruction. COMPARISON: No relevant prior studies available. FINDINGS: Vertebrae: No acute fracture. Normal alignment. Discs/Spinal canal/Neural foramina: No significant disc protrusion. No severe spinal canal stenosis. No significant neural foraminal narrowing. Soft tissues: Unremarkable. IMPRESSION: Unremarkable CT Spine. Thank you for allowing us to participate in the care of your patient. Dictated and Authenticated by: Keven Flores MD 01/24/2020 7:10 PM Central Time ([place]) [place]
--- NOTE | 2020-01-27 10:41 | CT ---
PROCEDURE INFORMATION: Exam: CT Chest Without Contrast Exam date and time: 01/24/2020 5:30 PM Age: 59 years old Clinical indication: Pain and injury or trauma; Blunt trauma (contusions or hematomas); Low back pain; Injury details: Fall, trauma, ETOH, pain to groin TECHNIQUE: Imaging protocol: Computed tomography of the chest without contrast. COMPARISON: No relevant prior studies available. FINDINGS: Tubes, catheters and devices: Left port ends in the SVC. Lungs: Unremarkable. No consolidation. No masses. Pleural space: Unremarkable. No pneumothorax. No pleural effusion. Heart: Unremarkable. No cardiomegaly. No pericardial effusion. Aorta: Unremarkable. No aortic aneurysm. Lymph nodes: Unremarkable. No enlarged lymph nodes. Bones/joints: Unremarkable. No acute fracture. Soft tissues: Unremarkable. IMPRESSION: No fractures PROCEDURE INFORMATION: Exam: CT Thoracic Spine Without Contrast Exam date and time: 01/24/2020 5:30 PM Age: 59 years old DON PRADO | Final Radiology Report Page 2 of 3 Clinical indication: Pain and injury or trauma; Blunt trauma (contusions or hematomas); Low back pain; Injury details: Fall, trauma, ETOH, pain to groin TECHNIQUE: Imaging protocol: Computed tomography images of the thoracic spine without contrast. COMPARISON: No relevant prior studies available. FINDINGS: Vertebrae: No acute fracture. Normal alignment. Discs/Spinal canal/Neural foramina: No significant disc protrusion. No severe spinal canal stenosis. No significant neural foraminal narrowing. Soft tissues: Unremarkable. IMPRESSION: Unremarkable CT Spine. PROCEDURE INFORMATION: Exam: CT Lumbar Spine Without Contrast Exam date and time: 01/24/2020 5:30 PM Age: 59 years old Clinical indication: Pain and injury or trauma; Blunt trauma (contusions or hematomas); Low back pain; Injury details: Fall, trauma, ETOH, pain to groin TECHNIQUE: Imaging protocol: Computed tomography images of the lumbar spine without contrast. Radiation optimization: All CT scans at this facility use at least one of these dose optimization techniques: automated exposure control; mA and/or kV adjustment per patient size (includes targeted exams where dose is matched to clinical indication); or iterative reconstruction. COMPARISON: No relevant prior studies available. FINDINGS: Vertebrae: See "Discs/Spinal canal/Neural foramina" finding. Discs/Spinal canal/Neural foramina: Compression of L1 with 1.1 cm retropulsion and spinal canal stenosis that may be resulting in spinal cord compression. Correlate with MRI. Degenerative disc space narrowing with vacuum phenomenon at L4-L5 and L5-S1. There is associated endplate spurring. Moderate bulges at L4-L5 and L5-S1. Kidneys and ureters: Simple left renal cyst measures 3.2 cm. Vasculature: Atherosclerosis. Soft tissues: Unremarkable. DUONG PRADOMARTELL | Final Radiology Report CONFIDENTIALITY STATEMENT This report is intended only for use by the referring physician, and only in accordance with law. If you received this in error, call [phone]. Page 3 of 3 IMPRESSION: Compression of L1 with 1.1 cm retropulsion and spinal canal stenosis that may be resulting in spinal cord compression. Correlate with MRI. COMMENTS: Consistent with the [employer]'s Incidental Findings Committee white paper (J Am Leila Radiol 2018): Any incidental renal lesion less than 1 cm or classified as too small to characterize, or any incidental cystic renal lesion characterized as simple- appearing, is likely benign. No follow-up imaging is recommended for these lesions per consensus recommendations based on imaging criteria. Thank you for allowing us to participate in the care of your patient. Dictated and Authenticated by: Keven Flores MD 01/24/2020 7:10 PM Central Time ([place] & [place]) [place]
== END 2020-01-24 20:35 ==
LOC: JD.ED 17:13
DX: S32.011A Stable burst fracture of first lumbar vertebra, initial encounter for closed fracture (principal); F10.129 Alcohol abuse with intoxication, unspecified; I10 Essential (primary) hypertension; Y90.0 Blood alcohol level of less than 20 mg/100 ml; Z79.899 Other long term (current) drug therapy; W13.2XXA Fall from, out of or through roof, initial encounter; Z20.828 Contact with and (suspected) exposure to other viral communicable diseases
CPT/HCPCS: 36415; 51702; 70450; 71260; 72125; 72128; 72131; 74177; 80053; 80307; 82150; 83605; 85025; 85610; 85730; 86850; 86900; 86901; 87635; 96374; 96375; 96376; 99285; J1170; J2060; J3010; J7030; J7120; Q9967; U0002

== ENCOUNTER 2023-07-04 12:08 | Emergency (ER) | payer MEDICARE, OTHER ==
[2023-07-04 12:20] VITALS: BP 163/92; PULSE 75
[2023-07-04 15:07] LABS: BASOPHILS ABSOLUTE AUTO 0.1 K/mm3 (0.0-0.2); BASOPHILS PERCENT AUTO 0.6 % (0.0-1.0); EOSINOPHILS ABSOLUTE AUTO 0.2 K/mm3 (0.0-0.4); EOSINOPHILS PERCENT AUTO 1.5 % (0.0-6.0); HEMATOCRIT 37.3 % (42.0-52.0); HEMOGLOBIN 12.5 gm/dl (14.0-18.0); IMMATURE GRAN ABSOLUTE AUTO 0.05 K/mm3 (0.00-0.05); IMMATURE GRAN PERCENT AUTO 0.4 % (0.0-0.4); LYMPHOCYTES ABSOLUTE AUTO 1.6 K/mm3 (1.0-4.8); LYMPHOCYTES PERCENT AUTO 13.2 % (24.0-44.0); MEAN CORPUSCULAR HEMOGLOBIN 31.2 pg (28.0-32.0); MEAN CORPUSCULAR HGB CONC 33.5 g/dl (32.0-36.0); MEAN PLATELET VOLUME 8.8 fl (9.4-12.4); MONOCYTES ABSOLUTE AUTO 0.8 K/mm3 (0.0-0.8); MONOCYTES PERCENT AUTO 6.7 % (0.0-8.0); NEUTROPHILS ABSOLUTE AUTO 9.4 K/mm3 (1.8-7.7); NEUTROPHILS PERCENT AUTO 77.6 % (41.0-71.0); PLATELET COUNT,PLT 273 K/mm3 (150-400); RED BLOOD CELL COUNT 4.01 M/mm3 (4.52-5.90); WHITE BLOOD CELL COUNT,WBC 12.14 K/mm3 (3.9-11.3)
[2023-07-04] MEDS: VANCOmycin 2 GM/400 ML 2 GM in Premix Bag 1 BAG IV ONE (15:09)
[2023-07-04] MEDS: Sodium Chloride 0.9% 10 ML Syringe FLUSH PRN (15:10)
== END 2023-07-04 16:31 | disposition left against medical advice (07) ==
LOC: JD.ED 12:08
DX: M46.44 Discitis, unspecified, thoracic region (principal); M86.9 Osteomyelitis, unspecified; I10 Essential (primary) hypertension; Z79.82 Long term (current) use of aspirin; Z79.899 Other long term (current) drug therapy
CPT/HCPCS: 36415; 85025; 96365; 99283; 99283-25; J1642; J3370; J3490

== ENCOUNTER 2024-01-11 06:00 | Emergency (ER) | payer MEDICARE, OTHER ==
[2024-01-11 06:35] LABS: BASOPHILS PERCENT AUTO 0.3 % (0.0-1.0); EOSINOPHILS ABSOLUTE AUTO 0.1 K/mm3 (0.0-0.4); EOSINOPHILS PERCENT AUTO 0.5 % (0.0-6.0); HEMATOCRIT 39.9 % (42.0-52.0); HEMOGLOBIN 13.6 gm/dl (14.0-18.0); IMMATURE GRAN ABSOLUTE AUTO 0.09 K/mm3 (0.00-0.05); IMMATURE GRAN PERCENT AUTO 0.6 % (0.0-0.4); LYMPHOCYTES ABSOLUTE AUTO 1.1 K/mm3 (1.0-4.8); LYMPHOCYTES PERCENT AUTO 7.8 % (24.0-44.0); MEAN CORPUSCULAR HEMOGLOBIN 32.2 pg (28.0-32.0); MEAN CORPUSCULAR HGB CONC 34.1 g/dl (32.0-36.0); MEAN CORPUSCULAR VOLUME 94.5 fl (83.0-99.0); MONOCYTES ABSOLUTE AUTO 0.9 K/mm3 (0.0-0.8); MONOCYTES PERCENT AUTO 6.6 % (0.0-8.0); NEUTROPHILS ABSOLUTE AUTO 11.8 K/mm3 (1.8-7.7); NEUTROPHILS PERCENT AUTO 84.2 % (41.0-71.0); RED BLOOD CELL COUNT 4.22 M/mm3 (4.52-5.90); WHITE BLOOD CELL COUNT,WBC 14.02 K/mm3 (3.9-11.3)
[2024-01-11 06:36] LABS: PLATELET COUNT,PLT 168 K/mm3 (150-400)
[2024-01-11] MEDS: Sodium Chloride 0.9% 1,000 ML IV SCH (06:40)
[2024-01-11] MEDS: Metoclopramide 10 MG/2 ML SDV IVPUSH ONE (06:41)
[2024-01-11] MEDS: HYDROmorphone 1 MG/ML Syringe IVPUSH ONE (06:42)
[2024-01-11 06:54] LABS: A/G RATIO 1.4 (1-2); ALBUMIN 4.3 g/dl (3.4-5.0); ANION GAP 13.7 (5-15); BILIRUBIN TOTAL 0.4 mg/dL (0.2-1.0); BUN/CREATININE RATIO 16.2 (14-18); C-REACTIVE PROTEIN 0.14 mg/dL (<0.30); CALCIUM 9.6 mg/dL (8.5-10.1); CREATININE 1.3 mg/dL (0.7-1.3); EST CRCL DRUG DOSING (CG) 58.49 mL/min; POTASSIUM,K 4.7 mEq/L (3.5-5.1); PROTEIN TOTAL,TP 7.4 g/dl (6.4-8.2)
[2024-01-11 06:57] LABS: LACTIC ACID 1.7 mmol/L (0.4-2.0)
[2024-01-11 08:31] LABS: APPEARANCE,URINE CLEAR (Clear); BILIRUBIN,URINE NEGATIVE (Negative); COLOR,URINE YELLOW (Yellow); GLUCOSE,URINE NEGATIVE (Negative); KETONES,URINE NEGATIVE (Negative); LEUKOCYTE ESTERASE,URINE NEGATIVE (Negative); NITRITE,URINE NEGATIVE (Negative); OCCULT BLOOD,URINE TRACE-INTACT (Negative); PH,URINE 6.5 (5.0-8.0); PROTEIN,URINE 2+ (Negative); UROBILINOGEN,URINE 0.2 (0.2-1.0)
[2024-01-11 08:53] LABS: BACTERIA,URINE FEW /hpf (FEW); EPITHELIAL CELLS,URINE 0-5 /hpf (0-5); HYALINE CASTS,URINE 0-5 /lpf (0-5); MUCUS,URINE MANY /hpf (FEW); WBC,URINE 0-5 /hpf (0-5)
[2024-01-11] MEDS: HYDROmorphone 0.5 MG/0.5 ML Syringe IVPUSH ONE (09:31)
[2024-01-11] MEDS ORDERED: Promethazine 25 MG Tab PO ONE (09:39)
[2024-01-11 10:18] VITALS: BP 124/72; PULSE 60
== END 2024-01-11 10:02 | disposition home or self-care (01) ==
LOC: JD.ED 06:00
DX: N13.2 Hydronephrosis with renal and ureteral calculous obstruction (principal); I10 Essential (primary) hypertension; E78.00 Pure hypercholesterolemia, unspecified; Z79.82 Long term (current) use of aspirin; Z79.899 Other long term (current) drug therapy
CPT/HCPCS: 36415; 74176; 80053; 81001; 83605; 85025; 86140; 96361; 96374; 96375; 96376; 99284; J1171; J2765; J7030